=== PATIENT | male | born 1940 | race Caucasian/White ===

== ENCOUNTER 2019-02-20 15:01 | Outpatient (CLI) | payer MEDICARE ==
--- NOTE | 2019-02-20 16:37 | MRI ---
MR of the left shoulder without contrast INDICATION: Left shoulder pain. Concern for tear of the rotator cuff TECHNIQUE: Sagittal T1, axial and coronal PD fat sat, sagittal and coronal T2 fat sat images were obt ained of the left shoulder. COMPARISON: None FINDINGS: Motion artifact limits image detail. Rotator cuff: There is a high-grade partial-thickness tear involving 75% of the tendon thickness of t he supraspinatus at the footprint. The tear measures approximately 1.0 x 1.6 cm in its greatest mediolateral and AP dimensions respectively. There is prominent tendinosis of the supraspinatus and i nfraspinatus. No muscular atrophy is evident. Glenohumeral joint: Articular cartilage is intact. Glenoid labrum: Intact Biceps tendon and biceps anchor: The biceps tendon is located. There is mild tendinosis of the intra- articular biceps tendon. 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 Subacromial subdeltoid space: No appreciable fluid. Axillary region: No lymphadenopathy. Surrounding left shoulder musculature: Normal. No evidence of atrophy or strain. IMPRESSION: 1. High-grade partial-thickness articular surface tear of the supraspinatus with prominent supraspina tus and infraspinatus tendinosis. 2. Mild AC joint osteoarthrosis.
== END 2019-02-20 15:02 | disposition home or self-care (01) ==
LOC: TBSIIMAG 15:01
PROVIDERS: ATTEND Orthopaedic Surgery
DX: M75.112 Incomplete rotator cuff tear or rupture of left shoulder, not specified as traumatic (principal); M19.012 Primary osteoarthritis, left shoulder; M67.814 Other specified disorders of tendon, left shoulder

== ENCOUNTER 2021-01-28 08:36 | Outpatient (CLI) | payer MEDICARE | END 2021-01-28 08:37 | disposition home or self-care (01) | LOC: NM 08:36 | PROVIDERS: ATTEND Psychiatry & Neurology Neurology | DX: G25.9 Extrapyramidal and movement disorder, unspecified (principal) | CPT/HCPCS: 78803; A9584 ==